=== PATIENT | male | born 1940 | race Caucasian/White ===

== ENCOUNTER 2017-11-26 15:20 | Emergency (ER) | payer OTHER ==
[~2017-11-26] VITALS: Ht 170.2 cm; Wt 90.7 kg
[~2017-11-26 15:20] MED LIST: ALBIPROI INH; ALLERCLEAR10 MG PO; ASPI325EC PO; AZIT500 PO; CALCIUM PO; CHOL10002; LEVFLO500 PO; LUPRON DEPOT22.5 MG IM; OXYC5 PO; VITAMIN E400 UNI1 PO
[2017-11-26 15:49] LABS: BASOPHILS ABSOLUTE AUTO 0.02 K/mm3 (0.00-0.23); BASOPHILS PERCENT AUTO 0 % (0-2); EOSINOPHILS PERCENT AUTO 1 % (0-6); Hematocrit 37.9 % (37.0-53.0); Hemoglobin 12.2 g/dL (13.5-17.5); IMMATURE GRAN ABSOLUTE AUTO 0.03 K/mm3 (0.00-0.10); IMMATURE GRAN PERCENT AUTO 0 % (0-1); LYMPHOCYTES ABSOLUTE AUTO 0.78 K/mm3 (0.84-5.20); LYMPHOCYTES PERCENT AUTO 11 % (21-46); MONOCYTES ABSOLUTE AUTO 0.26 K/mm3 (0.16-1.47); MONOCYTES PERCENT AUTO 4 % (4-13); Mean Corpuscular HGB 31.9 pg (26.0-34.0); Mean Corpuscular HGB Conc 32.2 g/dL (31.5-36.5); Mean Corpuscular Volume 99 fL (80-100); Mean Platelet Volume 11.6 fL (9.1-12.4); NEUTROPHILS ABSOLUTE AUTO 5.82 K/mm3 (1.96-9.15); NEUTROPHILS PERCENT AUTO 83 % (41-73); Platelet Count 181 K/mm3 (150-400); Red Blood Cell Count 3.83 M/mm3 (4.30-5.90); White Blood Cell Count 7.01 K/mm3 (4.00-11.30)
[2017-11-26 16:08] LABS: Alanine Aminotransfer (ALT/SGP 20 U/L (12-78); Albumin, Blood 3.7 g/dL (3.4-5.0); Albumin/Globulin Ratio 1.2 (0.8-1.8); Alk Phos 50 U/L (50-136); Anion Gap 9 mmol/L (6-16); Aspartate Aminotrans (AST/SGOT 14 U/L (12-37); Bilirubin, Total 0.7 mg/dL (0.1-1.0); Blood Urea Nitrogen 19 mg/dL (8-24); Bun/Creatinine Ratio 16.5 (12.0-20.0); CO2, Blood 25 mmol/L (21-32); Calcium, Blood 8.9 mg/dL (8.5-10.1); Chloride, Blood 108 mmol/L (98-108); Creatinine, Blood 1.15 mg/dL (0.60-1.20); Globulin, Blood 3.1 g/dL (2.2-4.0); Glomerular Filtration Rate >60 (60-); Glucose, Blood 152 mg/dL (70-99); Potassium, Blood 3.9 mmol/L (3.5-5.5); Sodium, Blood 142 mmol/L (136-145); Total Protein, Blood 6.8 g/dL (6.4-8.2)
[2017-11-26 16:32] LABS: Source, Urine Voided
[2017-11-26 16:39] LABS: Bilirubin, Urine Neg (Neg); Blood, Urine 1+ (Neg); Glucose Qualitative, Urine 2+ (Neg); Ketones, Urine 2+ (Neg); Leukocyte Esterase, Urine Neg (Neg); Nitrite, Urine Neg (Neg); Protein, Urine Neg (Neg); Urobilinogen, Urine NORM (Normal)
[2017-11-26 17:20] LABS: Appearance, Urine Clear (Clear); Color, Urine Pale Yellow (P-Yellow)
[2017-11-26 17:28] LABS: Bacteria Not Seen /hpf; Red Blood Cells, Urine Not Seen /hpf (0-2); Squamous Epithelial Cells Not Seen /hpf (Few); White Blood Cells, Urine Not Seen /hpf (0-5)
[2017-11-26] MEDS ORDERED: IBUP800 PO (17:59)
[2017-11-26] MEDS ORDERED: Norco 5-325 Ta1 EACH PO (17:59)
[2017-11-26] MEDS ORDERED: Zofran Odt4 MG PO (17:59)
== END 2017-11-26 18:41 | disposition home or self-care (01) ==
LOC: ER 15:20
PROVIDERS: Emergency Medicine; Physician Assistant
DX: N13.2 Hydronephrosis with renal and ureteral calculous obstruction (principal); Z88.8 Allergy status to other drugs, medicaments and biological substances; Z91.018 Allergy to other foods; Z91.02 Food additives allergy status; Z79.899 Other long term (current) drug therapy; Z87.891 Personal history of nicotine dependence
CPT/HCPCS: 36415; 74176; 80053; 81001; 83690; 85025; J3010

== ENCOUNTER 2018-11-16 18:44 | Emergency (ER) | payer OTHER, SELFPAY ==
[~2018-11-16] VITALS: Ht 170.2 cm; Wt 88.0 kg
[~2018-11-16 18:44] MED LIST changes: +IBUP800 PO; +Norco 5-325 Ta1 EACH PO; +Zofran Odt4 MG PO
[2018-11-16 19:09] LABS: Source, Urine Clean Catch
[2018-11-16 19:12] LABS: Bilirubin, Urine Neg (Neg); Blood, Urine Neg (Neg); Glucose Qualitative, Urine Neg (Neg); Ketones, Urine 4+ (Neg); Leukocyte Esterase, Urine Neg (Neg); Nitrite, Urine Neg (Neg); Protein, Urine 1+ (Neg); Specific Gravity, Urine 1.025 (1.003-1.022); Urobilinogen, Urine NORM (Normal)
[2018-11-16 19:12] LABS: BASOPHILS ABSOLUTE AUTO 0.02 K/mm3 (0.00-0.23); BASOPHILS PERCENT AUTO 0 % (0-2); EOSINOPHILS ABSOLUTE AUTO 0.12 K/mm3 (0.00-0.68); EOSINOPHILS PERCENT AUTO 1 % (0-6); Hematocrit 41.1 % (37.0-53.0); Hemoglobin 13.2 g/dL (13.5-17.5); IMMATURE GRAN ABSOLUTE AUTO 0.03 K/mm3 (0.00-0.10); IMMATURE GRAN PERCENT AUTO 0 % (0-1); LYMPHOCYTES ABSOLUTE AUTO 1.11 K/mm3 (0.84-5.20); LYMPHOCYTES PERCENT AUTO 11 % (21-46); MONOCYTES ABSOLUTE AUTO 0.33 K/mm3 (0.16-1.47); MONOCYTES PERCENT AUTO 3 % (4-13); Mean Corpuscular HGB Conc 32.1 g/dL (31.5-36.5); Mean Corpuscular Volume 103 fL (80-100); NEUTROPHILS ABSOLUTE AUTO 8.91 K/mm3 (1.96-9.15); NEUTROPHILS PERCENT AUTO 85 % (41-73); Platelet Count 199 K/mm3 (150-400); RDW Coefficient Variation 14.1 % (11.7-14.2); RDW Standard Deviation 53.4 fL (35.1-46.3); White Blood Cell Count 10.52 K/mm3 (4.00-11.30)
[2018-11-16 19:18] LABS: Appearance, Urine Clear (Clear); Color, Urine Yellow (P-Yellow)
[2018-11-16 19:35] LABS: Albumin, Blood 4.1 g/dL (3.4-5.0); Albumin/Globulin Ratio 1.4 (0.8-1.8); Bilirubin, Total 0.9 mg/dL (0.1-1.0); Bun/Creatinine Ratio 17.3 (12.0-20.0); Calcium, Blood 9.7 mg/dL (8.5-10.1); Creatinine, Blood 1.33 mg/dL (0.60-1.20); Globulin, Blood 2.9 g/dL (2.2-4.0); Potassium, Blood 4.2 mmol/L (3.5-5.5)
[2019-02-11] MEDS ORDERED: IBUP400 PO (10:42)
[2019-02-11] MEDS ORDERED: CALCIUM PO (10:43)
[2019-02-11] MEDS ORDERED: ERGO400 PO (10:44)
[2019-02-11] MEDS ORDERED: TONIC WATER PO (10:47)
[2019-02-11] MEDS ORDERED: QUININE PO (10:47)
[2019-02-11] MEDS ORDERED: GLUCOSAMINE PO (10:48)
== END 2018-11-16 20:10 | disposition home or self-care (01) ==
LOC: ER 18:44
PROVIDERS: Emergency Medicine
DX: N13.2 Hydronephrosis with renal and ureteral calculous obstruction (principal); Z87.891 Personal history of nicotine dependence
CPT/HCPCS: 74176; 80053; 85025; 96374; 96375; 99284-25; A9270; J1170; J2405

== ENCOUNTER 2019-02-16 12:44 | Day surgery (SDC) | payer OTHER ==
[~2019-02-16] VITALS: Ht 170.2 cm; Wt 91.9 kg
[~2019-02-16 12:44] MED LIST changes: +ERGO400 PO; +GLUCOSAMINE PO; +IBUP400 PO; +QUININE PO; +TONIC WATER PO
--- NOTE | 2019-02-16 13:10 | NUR ---
History, Chart, Medications and Allergies reviewed before start of procedure. Patient confirms NPO status and agrees with scheduled surgery. Daughter at bedside.
--- NOTE | 2019-02-16 13:22 | NUR ---
NOZIN NASAL MECHANICAL ORDNANCE ASSEMBLER X3 AMPULES TO NARES BILAT.
--- NOTE | 2019-02-16 13:23 | NUR ---
KNEE HIGH DARWIN HOSE WITH CALF PAS TO LLE.
--- NOTE | 2019-02-16 18:10 | NUR ---
REPORT FROM TRISTAN VELEZ OF OR. COMBATIVE PATIENT WITH TOTAL KNEE BEING ADMITTED TO ICU 5.
--- NOTE | 2019-02-16 22:30 | NUR ---
WALK/BLEEDING/GAUZE DRESSING WITH GIOVANA WRAP PLACED. PT RECENTLY WALKED IN HALLWAY WITH ONLINE CONTENT DEVELOPER. PT R KNEE HAD BLEEDING WHICH BLED THROUGH AQUACELL DRESSING. PRESSURE WAS HELD FOR APPROX 5 MINUTES, LEG/KNEE WAS CLEANED UP. BLEEDING APPEARED TO HAVE STOPPED AFTER HOLDING PRESSURE. NEW GAUZE DRESSING WITH GIOVANA WRAPPED PLACED WITH ASSIST FROM ONLINE CONTENT DEVELOPER. PT VSS. PT DID NOT PASS OUT, GET DIZZY OR HAVE ANY LOC. PT TOLERATED WELL. CHARGE NURSE AND NURSING BOWLING BALL PATCHER NOTIFIED.
--- NOTE | 2019-02-16 22:32 | NUR ---
PATIENT WALKED HALLS OF SURGICAL FLOOR AND THEN WENT TO THE RESTROOM. PATIENT IS NOW BACK TO BED RESTING WITH CALL LIGHT IN REACH.
[2019-02-17 04:36] LABS: BASOPHILS ABSOLUTE AUTO 0.01 K/mm3 (0.00-0.23); BASOPHILS PERCENT AUTO 0 % (0-2); EOSINOPHILS ABSOLUTE AUTO 0.01 K/mm3 (0.00-0.68); EOSINOPHILS PERCENT AUTO 0 % (0-6); Hematocrit 35.7 % (37.0-53.0); Hemoglobin 11.8 g/dL (13.5-17.5); IMMATURE GRAN ABSOLUTE AUTO 0.05 K/mm3 (0.00-0.10); IMMATURE GRAN PERCENT AUTO 1 % (0-1); LYMPHOCYTES ABSOLUTE AUTO 1.02 K/mm3 (0.84-5.20); LYMPHOCYTES PERCENT AUTO 10 % (21-46); MONOCYTES ABSOLUTE AUTO 0.69 K/mm3 (0.16-1.47); MONOCYTES PERCENT AUTO 7 % (4-13); Mean Corpuscular HGB 33.1 pg (26.0-34.0); Mean Corpuscular HGB Conc 33.1 g/dL (31.5-36.5); Mean Corpuscular Volume 100 fL (80-100); Mean Platelet Volume 11.5 fL (9.1-12.4); NEUTROPHILS ABSOLUTE AUTO 8.63 K/mm3 (1.96-9.15); NEUTROPHILS PERCENT AUTO 83 % (41-73); Platelet Count 195 K/mm3 (150-400); Red Blood Cell Count 3.56 M/mm3 (4.30-5.90); White Blood Cell Count 10.41 K/mm3 (4.00-11.30)
[2019-02-17 04:53] LABS: Anion Gap 5 mmol/L (6-16); Blood Urea Nitrogen 11 mg/dL (8-24); Bun/Creatinine Ratio 11.3 (12.0-20.0); CO2, Blood 27 mmol/L (21-32); Calcium, Blood 8.8 mg/dL (8.5-10.1); Chloride, Blood 107 mmol/L (98-108); Creatinine, Blood 0.97 mg/dL (0.60-1.20); Glomerular Filtration Rate >60 (60-); Glucose, Blood 132 mg/dL (70-99); Potassium, Blood 4.2 mmol/L (3.5-5.5); Sodium, Blood 139 mmol/L (136-145)
--- NOTE | 2019-02-17 05:07 | NUR ---
SHIFT SUMMARY PT EATING AND DRINKING WELL. PT VOIDING. PT BEEN UP AND WALKED IN HALLWAY WITH ASSIST, GB, WALKER. PT BEEN ASSISTED WITH ADL'S PRN. PT HAS NOT APPEARED TO HAVE ANY SHADOWING IN DRESSING, APPEARS C/D/I AFTER KNEE BEING CLEANED AND WRAPPED WITH GAUZE AND GIOVANA WRAP.
[2019-02-17] MEDS ORDERED: TUMS500 MG PO (10:45)
[2019-02-17] MEDS ORDERED: ASPI81CH PO (10:47)
[2019-02-17] MEDS ORDERED: ACET500 PO (10:47)
[2019-02-17] MEDS ORDERED: ROXICODONE5 MG PO (10:49)
--- NOTE | 2019-02-17 12:37 | NUR ---
DISCHARGE PT LEFT FOR HOME VIA WHEELCHAIR. DISCHARGE INSTRUCTIONS GONE OVER WITH PATIENT AND FAMILY MEMBER. NO FURTHER QUESTIONS. SCRIPT AND EXTRA DRESSINGS SENT WITH PATIENT. PINPOINT OF DRAINAGE ON AQUACEL DRESSING HAS NOT CHANGED SINCE AFTER CHANGE THIS AM. PT HAD NO COMPLAINTS OF PAIN AND WAS AMBULATING WELL WITH WALKER AND GAIT BELT.
== END 2019-02-17 12:35 | disposition home or self-care (01) ==
LOC: ORSCMMR 12:44 → ORD 14:45 → ORSCMMR 14:45 → SURS 19:10 → ORSCMMR 02-17 12:35
PROVIDERS: Orthopaedic Surgery
PROC: 0SRC0J9 Replacement of Right Knee Joint with Synthetic Substitute, Cemented, Open Approach (ICD-10-PCS; principal; 2019-02-16 14:45)
DX: M17.11 Unilateral primary osteoarthritis, right knee (principal); E78.5 Hyperlipidemia, unspecified
CPT/HCPCS: 36415; 73560-RT; 80048; 83735; 85025; 88300; 97110; 97116; 97161; 97530; C1713; C1776; J0171; J0690; J0735; J1100; J1885; J2060; J2405; J2704; J2795; J3010; J7120

== ENCOUNTER 2020-05-31 17:37 | Inpatient (IN) | payer OTHER, SELFPAY ==
[~2020-05-31] VITALS: Ht 170.2 cm; Wt 94.1 kg
[~2020-05-31 17:37] MED LIST changes: +ACET500 PO; +ASPI81CH PO; +ROXICODONE5 MG PO; +TUMS500 MG PO
[2020-05-31] MEDS ORDERED: FURO80 PO (17:59)
[2020-05-31] MEDS ORDERED: ALBU90OI INH (17:59)
[2020-05-31 18:20] LABS: BASOPHILS ABSOLUTE AUTO 0.04 K/mm3 (0.00-0.23); BASOPHILS PERCENT AUTO 1 % (0-2); EOSINOPHILS ABSOLUTE AUTO 0.24 K/mm3 (0.00-0.68); EOSINOPHILS PERCENT AUTO 4 % (0-6); Hemoglobin 13.2 g/dL (13.5-17.5); IMMATURE GRAN ABSOLUTE AUTO 0.02 K/mm3 (0.00-0.10); IMMATURE GRAN PERCENT AUTO 0 % (0-1); LYMPHOCYTES ABSOLUTE AUTO 1.34 K/mm3 (0.84-5.20); LYMPHOCYTES PERCENT AUTO 21 % (21-46); MONOCYTES ABSOLUTE AUTO 0.39 K/mm3 (0.16-1.47); MONOCYTES PERCENT AUTO 6 % (4-13); Mean Corpuscular HGB 32.3 pg (26.0-34.0); Mean Corpuscular HGB Conc 32.2 g/dL (31.5-36.5); Mean Corpuscular Volume 100 fL (80-100); Mean Platelet Volume 11.8 fL (9.1-12.4); NEUTROPHILS ABSOLUTE AUTO 4.39 K/mm3 (1.96-9.15); NEUTROPHILS PERCENT AUTO 68 % (41-73); Platelet Count 237 K/mm3 (150-400); RDW Coefficient Variation 14.1 % (11.7-14.2); RDW Standard Deviation 51.7 fL (35.1-46.3); Red Blood Cell Count 4.09 M/mm3 (4.30-5.90); White Blood Cell Count 6.42 K/mm3 (4.00-11.30)
[2020-05-31 18:34] LABS: PCO2 Arterial 45.8 mmHg (35-45); PO2 Arterial 70.6 mmHg (80-100); pH Blood Arterial 7.34 (7.35-7.45)
[2020-05-31 18:40] LABS: Alanine Aminotransfer (ALT/SGP 91 U/L (12-78); Albumin, Blood 4.1 g/dL (3.4-5.0); Albumin/Globulin Ratio 1.2 (0.8-1.8); Alk Phos 57 U/L (50-136); Anion Gap 7 mmol/L (6-16); Aspartate Aminotrans (AST/SGOT 54 U/L (12-37); Bilirubin, Total 0.9 mg/dL (0.1-1.0); Blood Urea Nitrogen 17 mg/dL (8-24); Bun/Creatinine Ratio 15.7 (12.0-20.0); CO2, Blood 24 mmol/L (21-32); Calcium, Blood 9.4 mg/dL (8.5-10.1); Chloride, Blood 106 mmol/L (98-108); Creatinine, Blood 1.08 mg/dL (0.60-1.20); Globulin, Blood 3.3 g/dL (2.2-4.0); Glomerular Filtration Rate >60 (60-); Glucose, Blood 165 mg/dL (70-99); Potassium, Blood 3.9 mmol/L (3.5-5.5); Sodium, Blood 137 mmol/L (136-145); Total Protein, Blood 7.4 g/dL (6.4-8.2); Troponin I 0.044 ng/mL (0.000-0.040)
[2020-05-31 19:41] LABS: Influenza A, PCR Negative (NEGATIVE); Influenza B, PCR Negative (NEGATIVE); Resp Syncytial Virus, PCR Negative (NEGATIVE); SARS-Cov-2 (COVID-19) PCR, MMC Negative (NEGATIVE)
[2020-05-31] MEDS ORDERED: KLOR-CON 1010 MEQ PO (20:48)
[2020-05-31] MEDS ORDERED: FUROSEMIDE20 MG PO (20:48)
--- NOTE | 2020-05-31 23:42 | NUR ---
ADMITTED 79 YR OLD MALE TO FLOOR FROM THE ED WITH CHF AND FLUID OVERLOAD. WAS GIVEN LASIX IV IN THE ED AND HAS VOIDED BOTH IN THE ED AND HERE IN BATHROOM. ALERT AND ORIENTED. LUNGS SLIGHT WHEEZE. ORIENTED TO CALL LIGHT. CALL LIGHT IN REACH
--- NOTE | 2020-06-01 04:33 | NUR ---
SHIFT SUMMARY HAS BEEN AWAKE AT INTERVALS. UP TO BR TO VOID. VOICED INSOMNIA, NOTIFIED AND MELATONIN ORDERED AND ADMINISTERED. HAS BEEN RESTING QUIETLY WITH FEW INTERRUPTIONS SINCE. CALL LIGHT IN REACH
[2020-06-01 05:39] LABS: Anion Gap 5 mmol/L (6-16); Blood Urea Nitrogen 16 mg/dL (8-24); Bun/Creatinine Ratio 16.2 (12.0-20.0); CO2, Blood 29 mmol/L (21-32); Calcium, Blood 8.9 mg/dL (8.5-10.1); Chloride, Blood 107 mmol/L (98-108); Creatinine, Blood 0.99 mg/dL (0.60-1.20); Glomerular Filtration Rate >60 (60-); Glucose, Blood 113 mg/dL (70-99); Potassium, Blood 3.4 mmol/L (3.5-5.5); Sodium, Blood 141 mmol/L (136-145)
[2020-06-01] MEDS ORDERED: Lisinopril2.5 MG PO (10:40)
[2020-06-01] MEDS ORDERED: ASPI81CH PO (10:40)
--- NOTE | 2020-06-01 10:58 | NUR ---
REMOVED IV AND TELE BOX; TELE RETURNED TO PCU DISBURSING OFFICER. DISCHARGE INSTRUCTIONS EXPLAINED TO PATIENT, ALL QUESTIONS ANSWERED. RX SENT TO [facility] PER PATIENT REQUEST. PATIENT ESCORTED OUT BY DISCHARGE VOLUNTEER IN W/C @ 1055. PATIENT TO BE TAKEN HOME BY DAUGHTER.
[2020-06-20] MEDS ORDERED: METO25ER PO (13:48)
== END 2020-06-01 10:57 | disposition home or self-care (01) | DRG 291 ==
LOC: ER 17:37 → MEDS 21:23
PROVIDERS: Student in an Organized Health Care Education/Training Program; ADMIT Internal Medicine
PROC: 3E0234Z Introduction of Serum, Toxoid and Vaccine into Muscle, Percutaneous Approach (ICD-10-PCS; principal; 2020-05-31)
DX: I50.23 Acute on chronic systolic (congestive) heart failure (principal); J96.01 Acute respiratory failure with hypoxia; R79.89 Other specified abnormal findings of blood chemistry; I08.3 Combined rheumatic disorders of mitral, aortic and tricuspid valves; I27.20 Pulmonary hypertension, unspecified; Z23 Encounter for immunization; Z20.822 Contact with and (suspected) exposure to COVID-19; Z87.891 Personal history of nicotine dependence
CPT/HCPCS: 0241U; 36415; 36600; 71045; 80048; 80053; 82803; 82947; 83880; 84484; 85025; 93005; 93010; 94640; 96374; 99285-25; A9270; J1650; J1940; Q2038

== ENCOUNTER 2020-06-21 10:14 | Day surgery (SDC) | payer OTHER ==
[~2020-06-21] VITALS: Ht 170.2 cm; Wt 89.0 kg
[~2020-06-21 10:14] MED LIST changes: +ALBU90OI INH; +FURO80 PO; +FUROSEMIDE20 MG PO; +KLOR-CON 1010 MEQ PO; +Lisinopril2.5 MG PO; +METO25ER PO
--- NOTE | 2020-06-21 13:10 | NUR ---
ASSUMED CARE OF PT POST PROCEDURE. PT AWAKE AND CONVERSING APPROPRIATELY; DENIES PAIN POST PROCEDURE. MONITOR SR WITH 1 ST DEGREE AND PVC'S 70-80'S, B/P 101/56, AFEBRILE, SPO2 93-95% RA. R RADIAL SITE NO SWELLING/HEMATOMA, TR BAND IN PLACE WITH 13 CC AIR; LUE POSITIVE PLEUTH. R AC (VENOUS) SITE NO SWELLING/HEMATOMA, ANNA AND TEGADERM DRSG INTACT. PT TAKING SIPS OF COFFEE WITHOUT ISSUE.
--- NOTE | 2020-06-21 16:00 | NUR ---
PT DRESSED SELF WITHOUT ISSUE, SITES UNCHANGED. TR BAND REMOVED, CLOTH DOT AND WRIST IMMOBILIZER PLACED; IV REMOVED-CANNULA INTACT.
--- NOTE | 2020-06-21 16:07 | NUR ---
PT RECEIVED DISCHARGE INSTRUCTIONS, MED LIST AND AFTER CARE INSTRUCTIONS; VERBALIZED GOOD UNDERSTANDING. PT LEFT FACILITY VIA W/C, CONDITION STABLE.
== END 2020-06-21 16:07 | disposition home or self-care (01) ==
LOC: MHTC 10:14
DX: I50.20 Unspecified systolic (congestive) heart failure (principal); I35.0 Nonrheumatic aortic (valve) stenosis; I34.0 Nonrheumatic mitral (valve) insufficiency; I25.10 Atherosclerotic heart disease of native coronary artery without angina pectoris; Z88.8 Allergy status to other drugs, medicaments and biological substances
CPT/HCPCS: 76937; 85347; 93005; 93010; 93456; 99152; 99153; C1769; C1894; J1644; J2250; J3010; J7030; J7050; Q9967

== ENCOUNTER 2020-08-22 14:51 | Emergency (ER) | payer OTHER ==
[~2020-08-22] VITALS: Ht 170.2 cm; Wt 90.3 kg
[2020-08-22 15:25] LABS: BASOPHILS ABSOLUTE AUTO 0.04 K/mm3 (0.00-0.23); BASOPHILS PERCENT AUTO 1 % (0-2); EOSINOPHILS ABSOLUTE AUTO 0.32 K/mm3 (0.00-0.68); EOSINOPHILS PERCENT AUTO 4 % (0-6); Hematocrit 38.7 % (37.0-53.0); IMMATURE GRAN ABSOLUTE AUTO 0.02 K/mm3 (0.00-0.10); IMMATURE GRAN PERCENT AUTO 0 % (0-1); LYMPHOCYTES ABSOLUTE AUTO 1.47 K/mm3 (0.84-5.20); LYMPHOCYTES PERCENT AUTO 20 % (21-46); MONOCYTES ABSOLUTE AUTO 0.66 K/mm3 (0.16-1.47); MONOCYTES PERCENT AUTO 9 % (4-13); Mean Corpuscular HGB 32.9 pg (26.0-34.0); Mean Corpuscular HGB Conc 33.6 g/dL (31.5-36.5); Mean Corpuscular Volume 98 fL (80-100); Mean Platelet Volume 11.7 fL (9.1-12.4); NEUTROPHILS ABSOLUTE AUTO 4.78 K/mm3 (1.96-9.15); NEUTROPHILS PERCENT AUTO 66 % (41-73); Platelet Count 210 K/mm3 (150-400); RDW Coefficient Variation 13.4 % (11.7-14.2); RDW Standard Deviation 48.5 fL (35.1-46.3); Red Blood Cell Count 3.95 M/mm3 (4.30-5.90); White Blood Cell Count 7.29 K/mm3 (4.00-11.30)
[2020-08-22 15:48] LABS: Alanine Aminotransfer (ALT/SGP 24 U/L (12-78); Albumin, Blood 3.4 g/dL (3.4-5.0); Albumin/Globulin Ratio 0.9 (0.8-1.8); Alk Phos 64 U/L (50-136); Anion Gap 4 mmol/L (6-16); Aspartate Aminotrans (AST/SGOT 9 U/L (12-37); Bilirubin, Total 0.7 mg/dL (0.1-1.0); Blood Urea Nitrogen 23 mg/dL (8-24); Bun/Creatinine Ratio 19.7 (12.0-20.0); CO2, Blood 29 mmol/L (21-32); Calcium, Blood 9.2 mg/dL (8.5-10.1); Chloride, Blood 105 mmol/L (98-108); Creatinine, Blood 1.17 mg/dL (0.60-1.20); Globulin, Blood 3.7 g/dL (2.2-4.0); Glomerular Filtration Rate >60 (60-); Glucose, Blood 107 mg/dL (70-99); Sodium, Blood 138 mmol/L (136-145); Total Protein, Blood 7.1 g/dL (6.4-8.2); Troponin I <0.015 ng/mL (0.000-0.040)
[2020-08-22] MEDS ORDERED: CEPH500 PO (18:18)
== END 2020-08-22 18:36 | disposition home or self-care (01) ==
LOC: ER 14:51
PROVIDERS: Emergency Medicine
DX: I95.9 Hypotension, unspecified (principal); L73.9 Follicular disorder, unspecified; I50.9 Heart failure, unspecified; Z87.891 Personal history of nicotine dependence; Z79.82 Long term (current) use of aspirin; Z79.899 Other long term (current) drug therapy; Z88.8 Allergy status to other drugs, medicaments and biological substances
CPT/HCPCS: 71046; 80053; 84484; 85025; 93005; 93010; 99285-25

== ENCOUNTER 2020-09-26 13:30 | Emergency (ER) | payer OTHER ==
[~2020-09-26] VITALS: Ht 170.2 cm; Wt 90.7 kg
[~2020-09-26 13:30] MED LIST changes: +CEPH500 PO
[2020-09-26 14:19] LABS: BASOPHILS ABSOLUTE AUTO 0.06 K/mm3 (0.00-0.23); BASOPHILS PERCENT AUTO 1 % (0-2); EOSINOPHILS ABSOLUTE AUTO 0.36 K/mm3 (0.00-0.68); EOSINOPHILS PERCENT AUTO 5 % (0-6); Hematocrit 39.4 % (37.0-53.0); Hemoglobin 12.8 g/dL (13.5-17.5); IMMATURE GRAN ABSOLUTE AUTO 0.03 K/mm3 (0.00-0.10); IMMATURE GRAN PERCENT AUTO 0 % (0-1); LYMPHOCYTES ABSOLUTE AUTO 1.61 K/mm3 (0.84-5.20); LYMPHOCYTES PERCENT AUTO 23 % (21-46); MONOCYTES ABSOLUTE AUTO 0.44 K/mm3 (0.16-1.47); MONOCYTES PERCENT AUTO 6 % (4-13); Mean Corpuscular HGB 32.5 pg (26.0-34.0); Mean Corpuscular HGB Conc 32.5 g/dL (31.5-36.5); Mean Corpuscular Volume 100 fL (80-100); Mean Platelet Volume 11.1 fL (9.1-12.4); NEUTROPHILS ABSOLUTE AUTO 4.54 K/mm3 (1.96-9.15); NEUTROPHILS PERCENT AUTO 64 % (41-73); Platelet Count 255 K/mm3 (150-400); RDW Coefficient Variation 13.6 % (11.7-14.2); Red Blood Cell Count 3.94 M/mm3 (4.30-5.90); White Blood Cell Count 7.04 K/mm3 (4.00-11.30)
[2020-09-26 14:39] LABS: Albumin, Blood 3.5 g/dL (3.4-5.0); Bilirubin, Total 0.6 mg/dL (0.1-1.0); Bun/Creatinine Ratio 23.5 (12.0-20.0); Calcium, Blood 9.2 mg/dL (8.5-10.1); Creatinine, Blood 1.32 mg/dL (0.60-1.20); Globulin, Blood 3.5 g/dL (2.2-4.0); Potassium, Blood 4.4 mmol/L (3.5-5.5)
[2020-09-26 14:44] LABS: International Normalized Ratio 0.96; Prothrombin Time Results 10.4 Sec (9.7-11.5)
[2020-09-26] MEDS ORDERED: DOXY100 PO (16:19)
[2020-09-26] MEDS ORDERED: Ciloxan5 ML BOTHEYES (16:57)
== END 2020-09-26 18:21 | disposition home or self-care (01) ==
LOC: ER 13:30
PROVIDERS: Physician Assistant
DX: S05.02XA Injury of conjunctiva and corneal abrasion without foreign body, left eye, initial encounter (principal); I50.9 Heart failure, unspecified; Z91.02 Food additives allergy status; Z88.8 Allergy status to other drugs, medicaments and biological substances; Z79.82 Long term (current) use of aspirin; Z79.899 Other long term (current) drug therapy; Z87.891 Personal history of nicotine dependence; X58.XXXA Exposure to other specified factors, initial encounter
CPT/HCPCS: 36415; 70450; 80053; 85025; 85610; 93005; 93010; 99284-25; A9270

== ENCOUNTER → 2021-01-17 | Outpatient (CLI) | payer OTHER ==
[~2021-01-17] MED LIST changes: +Ciloxan5 ML BOTHEYES; +DOXY100 PO
== END | disposition home or self-care (01) ==
LOC: LAB SHORT 11:00
DX: D22.5 Melanocytic nevi of trunk (principal); D22.62 Melanocytic nevi of left upper limb, including shoulder; L57.8 Other skin changes due to chronic exposure to nonionizing radiation; A49.02 Methicillin resistant Staphylococcus aureus infection, unspecified site; Z71.89 Other specified counseling
CPT/HCPCS: 87070; 87077; 87147; 87186; 87205

== ENCOUNTER 2022-06-10 14:23 | Emergency (ER) | payer OTHER ==
[~2022-06-10] VITALS: Ht 170.2 cm; Wt 81.7 kg
[2022-06-10 16:14] LABS: BASOPHILS ABSOLUTE AUTO 0.02 K/mm3 (0.00-0.23); BASOPHILS PERCENT AUTO 0 % (0-2); EOSINOPHILS ABSOLUTE AUTO 0.16 K/mm3 (0.00-0.68); EOSINOPHILS PERCENT AUTO 2 % (0-6); Hematocrit 38.4 % (37.0-53.0); Hemoglobin 12.8 g/dL (13.5-17.5); IMMATURE GRAN ABSOLUTE AUTO 0.03 K/mm3 (0.00-0.10); IMMATURE GRAN PERCENT AUTO 0 % (0-1); LYMPHOCYTES ABSOLUTE AUTO 0.89 K/mm3 (0.84-5.20); LYMPHOCYTES PERCENT AUTO 12 % (21-46); MONOCYTES PERCENT AUTO 7 % (4-13); Mean Corpuscular HGB 32.7 pg (26.0-34.0); Mean Corpuscular HGB Conc 33.3 g/dL (31.5-36.5); Mean Corpuscular Volume 98 fL (80-100); Mean Platelet Volume 11.7 fL (9.1-12.4); NEUTROPHILS ABSOLUTE AUTO 6.11 K/mm3 (1.96-9.15); NEUTROPHILS PERCENT AUTO 79 % (41-73); Platelet Count 177 K/mm3 (150-400); RDW Coefficient Variation 13.7 % (11.7-14.2); RDW Standard Deviation 49.4 fL (35.1-46.3); Red Blood Cell Count 3.92 M/mm3 (4.30-5.90); White Blood Cell Count 7.71 K/mm3 (4.00-11.30)
[2022-06-10 16:33] LABS: Albumin, Blood 3.3 g/dL (3.4-5.0); Albumin/Globulin Ratio 1.1 (0.8-1.8); Bilirubin, Total 0.5 mg/dL (0.1-1.0); Bun/Creatinine Ratio 21.6 (12.0-20.0); Calcium, Blood 9.1 mg/dL (8.5-10.1); Creatinine, Blood 1.53 mg/dL (0.60-1.20); Globulin, Blood 2.9 g/dL (2.2-4.0); Potassium, Blood 3.9 mmol/L (3.5-5.5); Total Protein, Blood 6.2 g/dL (6.4-8.2)
== END 2022-06-10 19:42 | disposition home or self-care (01) ==
LOC: ER 14:23
PROVIDERS: Student in an Organized Health Care Education/Training Program
DX: S42.011A Anterior displaced fracture of sternal end of right clavicle, initial encounter for closed fracture (principal); R58 Hemorrhage, not elsewhere classified; I50.9 Heart failure, unspecified; W18.30XA Fall on same level, unspecified, initial encounter; Z88.8 Allergy status to other drugs, medicaments and biological substances; Z91.018 Allergy to other foods; Z91.02 Food additives allergy status; Z79.899 Other long term (current) drug therapy; Z79.82 Long term (current) use of aspirin; Z87.891 Personal history of nicotine dependence
CPT/HCPCS: 36415; 70450; 71260; 72125; 73000; 80053; 85025; Q9967

== ENCOUNTER 2023-01-28 10:43 | Emergency (ER) | payer OTHER ==
[~2023-01-28] VITALS: Ht 172.7 cm; Wt 83.9 kg
[2023-01-28 11:04] LABS: BASOPHILS ABSOLUTE AUTO 0.02 K/mm3 (0.00-0.23); BASOPHILS PERCENT AUTO 0 % (0-2); EOSINOPHILS ABSOLUTE AUTO 0.11 K/mm3 (0.00-0.68); EOSINOPHILS PERCENT AUTO 1 % (0-6); Hemoglobin 10.2 g/dL (13.5-17.5); IMMATURE GRAN ABSOLUTE AUTO 0.18 K/mm3 (0.00-0.10); IMMATURE GRAN PERCENT AUTO 2 % (0-1); LYMPHOCYTES ABSOLUTE AUTO 1.77 K/mm3 (0.84-5.20); LYMPHOCYTES PERCENT AUTO 16 % (21-46); MONOCYTES ABSOLUTE AUTO 0.39 K/mm3 (0.16-1.47); MONOCYTES PERCENT AUTO 3 % (4-13); Mean Corpuscular HGB 33.6 pg (26.0-34.0); Mean Corpuscular HGB Conc 32.9 g/dL (31.5-36.5); Mean Corpuscular Volume 102 fL (80-100); Mean Platelet Volume 11.9 fL (9.1-12.4); NEUTROPHILS ABSOLUTE AUTO 8.85 K/mm3 (1.96-9.15); NEUTROPHILS PERCENT AUTO 78 % (41-73); Platelet Count 151 K/mm3 (150-400); RDW Coefficient Variation 13.3 % (11.7-14.2); RDW Standard Deviation 49.6 fL (35.1-46.3); Red Blood Cell Count 3.04 M/mm3 (4.30-5.90); White Blood Cell Count 11.32 K/mm3 (4.00-11.30)
[2023-01-28 11:05] LABS: Calcium, Ionized (POC) 1.09 mmol/L (1.10-1.46); Chloride (POC) 105 mmol/L (98-108); Creatinine (POC) 1.9 mg/dL (0.8-1.3); Glucose (ISTAT POC) 277 mg/dL (70-99); Hemoglobin (POC) 10.2 g/dL (13.5-17.5); Potassium (POC) 3.9 mmol/L (3.5-5.5); Sodium (POC) 138 mmol/L (135-148); Total CO2 (POC) 20 mmol/L (21-32)
[2023-01-28 11:13] LABS: Base Excess Venous -6.8 mmol/L; PCO2 Venous 45.2 mmHg (38-42); pH Blood Venous 7.26 (7.34-7.37)
[2023-01-28 11:19] LABS: International Normalized Ratio 1.04; Prothrombin Time Results 10.9 Sec (9.7-11.5)
[2023-01-28 11:33] LABS: Alanine Aminotransfer (ALT/SGP 34 U/L (12-78); Albumin, Blood 2.7 g/dL (3.4-5.0); Albumin/Globulin Ratio 1.1 (0.8-1.8); Alk Phos 36 U/L (50-136); Anion Gap 7 mmol/L (6-16); Aspartate Aminotrans (AST/SGOT 29 U/L (12-37); Bilirubin, Total 0.4 mg/dL (0.1-1.0); Blood Urea Nitrogen 32 mg/dL (8-24); Bun/Creatinine Ratio 19.4 (12.0-20.0); CO2, Blood 22 mmol/L (21-32); Chloride, Blood 110 mmol/L (98-108); Creatinine, Blood 1.65 mg/dL (0.60-1.20); Ethanol (Alcohol), Blood, Med <3 mg/dL; Globulin, Blood 2.5 g/dL (2.2-4.0); Glomerular Filtration Rate 41 (60-); Glucose, Blood 290 mg/dL (70-99); Sodium, Blood 139 mmol/L (136-145); Total Protein, Blood 5.2 g/dL (6.4-8.2)
[2023-01-28 12:45] LABS: U Amphetamine Screen Not Detected; U Barbituate Screen Not Detected; U Benzodiazapine Screen Not Detected; U Buprenorphine Screen Not Detected; U Cannabinoids Screen Not Detected; U Cocaine Screen Not Detected; U Methadone Screen Not Detected; U Methamphetamine Screen Not Detected; U Opiates Screen Not Detected; U Oxycodone Screen Not Detected; U Phencyclidine Screen Not Detected; U Propoxyphene Screen Not Detected
[2023-01-28 13:00] LABS: PCO2 Arterial 35.4 mmHg (35-45); PO2 Arterial 110 mmHg (80-100); pH Blood Arterial 7.36 (7.35-7.45)
[2023-01-28 13:45] VITALS: BP 105/69
== END 2023-01-28 14:10 | disposition short-term general hospital (02) ==
LOC: ER 10:43
PROVIDERS: Student in an Organized Health Care Education/Training Program
DX: S22.43XA Multiple fractures of ribs, bilateral, initial encounter for closed fracture (principal); S27.2XXA Traumatic hemopneumothorax, initial encounter; S22.20XA Unspecified fracture of sternum, initial encounter for closed fracture; S27.322A Contusion of lung, bilateral, initial encounter; I50.9 Heart failure, unspecified; V80.018A Animal-rider injured by fall from or being thrown from other animal in noncollision accident, initial encounter; Z88.8 Allergy status to other drugs, medicaments and biological substances; Z91.018 Allergy to other foods; Z79.82 Long term (current) use of aspirin; Z79.899 Other long term (current) drug therapy; Z87.891 Personal history of nicotine dependence
CPT/HCPCS: 32551; 36430; 36556; 36600; 51702; 70450; 71045; 71260; 72125; 74177; 80047; 80053; 82803; 83880; 84484; 85014; 85025; 85610; 86850; 86900; 86901; 86923; 93005; 93010; 99291-25; 99292; C1751; G0390; G0480; J1265; J2250; J2704; J3010; J7030; J7050; J7060; L0160; P9016; P9035; P9059; Q9967